=== PATIENT | male | born 1965 | race Caucasian/White ===

== ENCOUNTER 2018-11-28 07:43 | Day surgery (SDC) | payer BC ==
[2018-11-23 15:59] LABS: BLEEDING TIME 4.5 MINUTES (1.5-7.0)
[2018-11-23 16:04] LABS: BASO % 0.1 % (0-6); EOS % 1.5 % (0-6); GRAN % 64.3 % (47-80); HEMATOCRIT 40.9 % (42.0-52.0); HEMOGLOBIN 13.9 gm/dl (14.0-18.0); LYMPH % 23.8 % (16-45); MEAN CELL VOLUME 85.9 fl (81-97); MEAN CORPUSCULAR HEMOGLOBIN 29.2 pg (27-33); MEAN PLATELET VOLUME 10.7 fl (7.4-10.4); MONO % 10.3 % (0-9); PLATELET COUNT 281 K/uL (130-400); RED BLOOD COUNT 4.76 M/uL (4.40-5.70); RED CELL DISTRIBUTION WIDTH 13.3 % (11.5-14.5); WHITE BLOOD COUNT W/O DIFF 7.1 K/uL (4.2-12.2)
[2018-11-23 16:20] LABS: INR 1.1; PARTIAL THROMBOPLASTIN TIME 29.9 SECONDS (24.5-39.1); PROTHROMBIN TIME (PATIENT) 10.6 SECONDS (9.5-12.1)
[2018-11-23 16:22] LABS: BLOOD UREA NITROGEN 22 mg/dL (6-20); EST GLOMERULAR FILTRATION RATE > 60 mL/min; GLUCOSE,RANDOM 158 mg/dL (74-109)
--- NOTE | 2018-11-28 06:38 | History and Physical - Ferro ---
CHIEF COMPLAINT/HISTORY OF CHIEF COMPLAINT: This patient presents with a history of intractable post lumbar laminectomy radiculopathy. Due to the failure of therapy, a spinal cord stimulator trial was conducted on 05/28/18. Due to the success of the trial and the failure of all other therapies, he presents today for implantation of a permanent system. PAST MEDICAL HISTORY: Hypertension and degenerative arthritis. PAST SURGICAL HISTORY: Knee surgery, lumbar spinal surgery, and biceps surgery. EMPLOYMENT STATUS: rn postpartum employed. MEDICATIONS ON ADMISSION: List to be provided. ALLERGIES: MELOXICAM. FAMILY/PSYCHOSOCIAL HISTORY: Social history - Caffeine. Family history - Diabetes, hypertension, and coronary artery disease. SYSTEMS REVIEW: The patient is appropriate in no acute distress. The remainder of the systems review is positive for blood pressure problems. PHYSICAL EXAMINATION: Height is 6', weight is 240. No vital signs. HEENT: Within normal limits. LUNGS: Clear. HEART: Rapid and regular rate. ABDOMEN: Nontender. MUSCULOSKELETAL: Examination of the musculoskeletal system shows diffuse tenderness across the lumbar spine. Range of motion does cause pain into both legs somewhat more left than right across an outer front surface. There is mild motor and sensory abnormalities somewhat more left than right. Ambulation - No assistive device utilized. NEUROLOGIC: Cranial nerves are intact. IMPRESSION: LUMBAR RADICULOPATHY, ICD-10 CODE M54.16 AND M54.17. PLAN: This patient had a successful stimulator trial and failed all other therapies. He is here for a permanent implantation. The procedure will be considered outpatient, but an overnight stay will be evaluated. The potential risks, side effects, and complications have all been carefully reviewed and discussed. JOB NUMBER: [id number] MTDD
[~2018-11-28 07:43] MED LIST: ACETAMINOPHEN 1,000 MG/100 ML BTL IV ONE; CEFAZOLIN 2 Gram 2 GM/50 ML BAG IVPB ONE; FAMOTIDINE 20MG TABLET PO ONE; MECLIZINE 25 MG TABLET PO ONE; METOCLOPRAMIDE 10 MG TABLET PO ONE
[2018-11-28] MEDS ORDERED: FENTANYL PF 100MCG/2ML VIAL IV ONE (07:44)
[2018-11-28] MEDS ORDERED: OXYCODONE/APAP 10MG-325MG TABLET PO ONE (07:44)
[2018-11-28] MEDS ORDERED: KETAMINE HCL 100MG/1ML VIAL INJ ONE (07:44)
[2018-11-28] MEDS ORDERED: 0.9 % SODIUM CHLORIDE 10 ML VIAL IVP ONE (07:44)
[2018-11-28] MEDS ORDERED: MIDAZOLAM HCL 2MG/2ML VIAL IV ONE (07:44)
[2018-11-28] MEDS ORDERED: LIDOCAINE 1% W/EPI 1:200,000 MPF 30ML SQ ONE (07:44)
[2018-11-28] MEDS ORDERED: CEFAZOLIN 1G VIAL IM ONE (07:44)
[2018-11-28] MEDS ORDERED: LIDOCAINE 2% MDV (20MG/ML) 20ML VIAL IV ONE (07:44)
[2018-11-28] MEDS ORDERED: PROPOFOL 10 MG/ML VIAL IV ONE (07:44)
[2018-11-28] MEDS ORDERED: BUPIVACAINE 0.5% W/EPI MPF 30 ML VIAL IVP ONE (07:44)
--- NOTE | 2018-11-29 16:19 | Operative Note ---
DATE OF SURGERY: 11/28/18 PREOPERATIVE DIAGNOSES: POST LUMBAR LAMINECTOMY SYNDROME, ICD-10 CODE = M96.1 WITH RADICULOPATHY, ICD- 10 CODE = M54.16 AND M54.17. OPERATION: 1. FLUOROSCOPICALLY-GUIDED EPIDURAL ACCESS LEFT T12/L1. PLACEMENT OF SPINAL CORD STIMULATOR LEAD 1, A [employer] INFINION 16 WITH 6 ELECTRODES POSITIONED LEFT T7. 2. FLUOROSCOPICALLY-GUIDED EPIDURAL ACCESS LEFT T11/12. PLACEMENT OF SPINAL CORD STIMULATOR LEAD 2, A [employer] INF[employer] 16 WITH 6 ELECTRODES POSITIONED RIGHT, T7. 3. COMPLEX PROGRAMMING LEAD 1 OVER 20 MINUTES FOLLOWED BY COMPLEX PROGRAMMING OF LEAD 2 OVER 20 MINUTES. 4. INCISION, SUBCUTANEOUS DISSECTION, AND ANCHORING LEAD 1 AND LEAD 2 TO SUPRASPINOUS FASCIA WITH A [employer] LOCKING ANCHOR AND NONABSORBABLE SUTURE. 5. INCISION, SUBCUTANEOUS DISSECTION, AND CREATION OF A SUBCUTANEOUS POUCH AT LEFT POSTERIOR GLUTEAL MARGIN SLIGHTLY ABOVE BELT LINE FOR PLACEMENT OF GENERATOR IDENTIFIED A [employer] WAVEWRITER PROGRAMMABLE RECHARGEABLE. 6. TUNNELING BETWEEN POUCHES, PLACEMENT OF EXTERNAL PORTION OF LEAD 1 AND LEAD 2 INTO GENERATOR POUCH, EACH LEAD INTERFACED TO GENERATOR. 7. PLACEMENT OF GENERATOR POUCH, PLACEMENT OF LEADS INTO POUCH. CLOSURE OF BOTH INCISIONS STRATAFIX SUTURE 2-0 FASCIA, 3-0 SKIN. DERMABOND CLOSURE. 8. COMPLEX RECOVERY ROOM PROGRAMMING INTERNAL GENERATOR HOME USE, TWO STIMULATORS, RECOVERY ROOM 20 MINUTES. SURGEON: SYDNEE GAONA D.O. ANESTHESIA: LOCAL SEDATION. ANESTHESIA PROVIDER: SWATI GONZALEZ CRNA. INDICATION: This patient presents with a history of intractable post lumbar laminectomy radiculopathy. Due to the failure of therapies, a spinal cord stimulator trial was conducted with 75 to 95% pain control. Due to the failure of therapy and the success of the stimulator trial, by his request, he is here for permanent implantation. PROCEDURE: Intravenous line, vital sign monitoring, IV sedation, prepped and draped in sterile technique. Under imaging, the epidural interspace left of the midline at T11/12 and 12/ were marked, infiltrated. Two separate curved access Epimed needles with [id number]. The Epimed successful at 12/1 with standard needle successful at 11/12 with [id number]. Atraumatic. No CSF. No blood. At 12/, spinal cord stimulator lead 1, a [employer] Infinion 16 with 6 electrodes was positioned left T7. With the epidural access at 11, spinal cord stimulator lead 2, a [employer] Infinion 16 with 6 electrodes positioned right at T7. Complex programming of lead 1 over 20 minutes followed by complex programming of lead 2 over 20 minutes resulting in complete patterns of stimulation across the back and into the legs; patient indicating we had all of the areas of the pain. He was given the option to implant, continue to program, or remove; he opted to implant. Questions were repeated with the same response. The skin above and below both needles infiltrated, incision made, and subcutaneous dissection was conducted to the supraspinous fascia. Each lead was then anchored to the supraspinous fascia with a [employer] [place]. At the left flank, above the belt line , a site picked by the patient for the generator, skin infiltrated, incision made, and subcutaneous dissection was conducted to form a pouch of suitable size and depth for the generator, a [employer] Program[employer] Rechargeable WaveWriter. A tunneling tool was used to carry the leads into the generator pouch and then each lead was interfaced to the generator. Antibiotic irrigation. Bovie for hemostasis. The leads were placed into their pouch and then the generator was placed in its own pouch and then both incisions were closed using STRATAFIX suture 2-0 fascia and 3-0 skin and then a Dermabond closure was used to approximate the edges of both wounds. He was then transported to the Recovery Room stable. No side-effects from the procedure or the sedation. With the Dermabond firmly in place, he is prepared for discharge. DISCHARGE INSTRUCTIONS: 1. Sites remain clean and dry. No showering or bathing in any way that would disrupt dressings. Although the Dermabond will allow showering, he should not sit in a tub or sit in water. 2. Standard medications resumed including the antibiotic Levaquin. He will take 500 mg once a day for 14 days. 3. The office will contact the patient in 24-48 hours to set up a time in 7-10 days for us to evaluate the incisions. Throughout this period of time, he is to keep his activities low. Limit bend, lift, push, pull. Once we have seen the sites, we can clear him for further activities. All other instructions provided , numbers to contact, problems given. The antibiotic Levaquin has been called to his pharmacy. cc: Dr. Eliot Deng JOB NUMBER: [id number] MTDD
--- NOTE | 2018-11-30 09:06 | RADIOLOGY REPORT ---
DATE: 11/28/2018. EXAM: SPINE RADIOGRAPH. HISTORY: Spinal cord stimulator implant. TECHNIQUE: Single frontal radiograph of the thoracolumbar spine. COMPARISON: None. FINDINGS: There is a stimulator device with a generator pack superimposing the left lower abdomen and leads superimposing the T7 through T9 vertebra. For additional details, please refer to the procedural report. Also noted is lower lumbar spinal fusion hardware. IMPRESSION: ABOVE. JOB NUMBER: [id number] MTDD
== END 2018-11-28 12:15 | disposition home or self-care (01) ==
LOC: SUR 07:43
PROVIDERS: ATTEND Pain Medicine Interventional Pain Medicine
DX: M96.1 Postlaminectomy syndrome, not elsewhere classified (principal); M54.16 Radiculopathy, lumbar region; M54.17 Radiculopathy, lumbosacral region; I10 Essential (primary) hypertension; E11.9 Type 2 diabetes mellitus without complications
CPT/HCPCS: 63650; 63685; 01936; 95972; 85025; 85730; 85610; 80048; 85002; 72020; J3010; J0690; J3490; C1820; C1883

== ENCOUNTER 2018-12-20 14:59 | Day surgery (SDC) | payer BC ==
[2018-12-20] MEDS ORDERED: KETAMINE HCL 100MG/1ML VIAL INJ ONE (15:00)
[2018-12-20] MEDS ORDERED: CEFAZOLIN 1G VIAL IM ONE (15:00)
[2018-12-20] MEDS ORDERED: PROPOFOL 10 MG/ML VIAL IV ONE (15:00)
[2018-12-20] MEDS ORDERED: DEXAMETHASONE 4 MG/ML 1ML VIAL IVP ONE (15:00)
[2018-12-20] MEDS ORDERED: LIDOCAINE 2% MDV (20MG/ML) 20ML VIAL IV ONE (15:00)
[2018-12-20] MEDS ORDERED: OXYCODONE/APAP 10MG-325MG TABLET PO ONE (15:00)
[2018-12-20] MEDS ORDERED: MIDAZOLAM HCL 2MG/2ML VIAL IV ONE (15:00)
[2018-12-20] MEDS ORDERED: LIDOCAINE 1% W/EPI 1:200,000 MPF 30ML SQ ONE (15:00)
[2018-12-20] MEDS ORDERED: HYDROMORPHONE HCL 2 MG/ML VIAL IV ONE (15:00)
[2018-12-20] MEDS ORDERED: BUPIVACAINE 0.5% W/EPI MPF 30 ML VIAL IVP ONE (15:00)
[2018-12-20] MEDS ORDERED: FENTANYL PF 100MCG/2ML VIAL IV ONE (15:00)
--- NOTE | 2018-12-22 13:04 | Operative Note ---
DATE OF SURGERY: 12/20/2018. PREOPERATIVE DIAGNOSIS: 1. POSTLUMBAR LAMINECTOMY SYNDROME, ICD-10 CODE M96.1. 2. RADICULOPATHY, ICD-10 CODE M54.16 AND M54.17. 3. SPINAL CORD STIMULATOR INTERNAL GENERATOR WITH FLIPPED MALPOSITION OF SINGLE LEAD AND NERVE ROOT IRRITATION. POSTOPERATIVE DIAGNOSIS: 1. POSTLUMBAR LAMINECTOMY SYNDROME, ICD-10 CODE M96.1. 2. RADICULOPATHY, ICD-10 CODE M54.16 AND M54.17. 3. SPINAL CORD STIMULATOR INTERNAL GENERATOR WITH FLIPPED MALPOSITION OF SINGLE LEAD AND NERVE ROOT IRRITATION. OPERATION: Fluoroscopically guided incision, subcutaneous dissection, and removal of right spinal cord stimulator lead, one of two implants. SURGEON: Lexx Obrien D.O. ANESTHESIA: Local sedation. ANESTHESIA PROVIDER: Alexis Mcdonald CRNA. INDICATION: This patient presents with a history of spinal cord stimulator internal generator implant approximately three to four weeks ago. Although initially it was in excellent position and good stimulation patterns were achieved, over perhaps three to five days the patient began having chest wall or intercostal pain on the right. X-rays were performed which suggested that one of the two leads had migrated laterally. Lateral imaging showed the lateral lead was pushing close to the dorsal root entry zone. This suggested the probability that the pain pattern toward the intercostal chest wall on the right was a lead which had migrated up against a nerve root. Corticosteroid therapy was utilized and was unsuccessful. He is here for removal of the lead. He was given the option to remove both leads, but he felt that the single lead still provided adequate stimulation. We will therefore remove today only the single lead. We will then evaluate over the next period of time whether or not a second lead would be necessary. DESCRIPTION OF PROCEDURE: Intravenous line, vital sign monitoring, and intravenous sedation. Prepped and draped with sterile technique. The patient was positioned prone. The original incision for the lead placement was infiltrated with local. An incision was made and subcutaneous dissection was conducted to the anchors. Under imaging and with corroboration with the previous standard x-rays performed shortly after the implant, the migrated lead was identified at the upper anchor. The suture holding the anchor was cut and removed, and the lead and anchor were removed intact by slowly retracting out of the space. There were no abnormal events during the procedure. At that time, Anesthesia gave intravenous dexamethasone as a corticosteroid to help reduce some of the irritation. Antibiotic irrigation was performed, and then the incision was closed with one of the original two leads still in place. The incision was then closed using Stratafix suture; #2-0 for the fascia and #3- 0 for the skin. Dermabond closure was then used to approximate the edges of the wound. He was transported to the recovery room stable with no side effects from the procedure or the sedation. He will be monitored and then discharged to home. DISCHARGE INSTRUCTIONS: 1. The site is to remain clean and dry; although the Dermabond will allow showering. 2. He will return to the office in the next three to five days for evaluation of his incision. He is scheduled to return to work in the next four to five days. 3. Standard medications to be resumed. He will continue his antibiotic with Levaquin 500 mg once a day for 14 days. 4. His activities should stay controlled. Although the remaining lead has had sufficient time to scar and fibrose, he should still maintain a minimum amount of bend, lift, push, and pull until he is seen in the office in 10 to 14 days. 5. All other instructions were provided and numbers to contact with problems were given. He was then discharged. JOB NUMBER: [id number] cc: Dr. Eliot TAVERAS
--- NOTE | 2018-12-22 13:25 | History and Physical - Ferro ---
DATE: 12/20/2018. CHIEF COMPLAINT/HISTORY OF CHIEF COMPLAINT: This is a patient with a history of a spinal cord stimulator implant placed within the last two to four weeks. He contacted the office and indicated he was having fairly intense pain in the right side of his chest wall. We reviewed the records, and he had been seen roughly 10 to 14 days postoperatively after the implant and was starting to have some irritation in the chest wall intercostal region. It was felt that he just had postoperative change, and he was given a Medrol Dosepak. This did not seem to help, and in fact his pain progressed. Standard diagnostic x-rays were performed which suggested one of the two leads, that on the right, had migrated lateral. The lateral image of the x-ray suggested that the lead was possibly close to the dorsal root or pushing toward the nerve root. It was then assumed that he had a lead irritating a nerve root. He was scheduled today, the same day he was seen in the office, for removal of the lead. Because the system had been helping his pain, he was given the option to remove only the one lead or to remove both leads and then return another time for reimplant. He opted to remove only the involved lead, leaving one lead which was still sufficient to control his pain. PAST MEDICAL HISTORY: Unchanged. PAST SURGICAL HISTORY: Unchanged. MEDICATIONS ON ADMISSION: Unchanged. ALLERGIES: Unchanged. FAMILY HISTORY: Unchanged. SOCIAL HISTORY: Unchanged. SYSTEMS REVIEW: Unchanged PHYSICAL EXAMINATION: GENERAL: Height and weight not identified. HEENT: Within normal limits. LUNGS: Clear. HEART: Rapid and regular. ABDOMEN: Nontender. MUSCULOSKELETAL: Examination of the musculoskeletal system shows an area of pain along the mid to lower right intercostals anterior to the anterior axillary line. X-rays were used to corroborate findings of a possible nerve root. NEUROLOGIC: The sensory field evaluation showed pain. There were no ___ responses. The upper and lower extremities were not compromised. Cranial nerves intact. IMPRESSION: 1. POSTLUMBAR LAMINECTOMY SYNDROME, ICD-10 CODE M96.1. 2. SPINAL CORD STIMULATOR INTERNAL GENERATOR TWO TO FOUR WEEKS POST IMPLANT. 3. MIGRATION OF LEAD WITH NERVE ROOT IRRITATION. PLAN: We will remove the involved lead, leaving one of the two leads fully implanted. The procedure will be considered outpatient. JOB NUMBER: [id number] cc: [facility]. [facility]eng [facility]
== END 2018-12-20 18:20 | disposition home or self-care (01) ==
LOC: SUR 14:59
PROVIDERS: ATTEND Pain Medicine Interventional Pain Medicine
DX: M96.1 Postlaminectomy syndrome, not elsewhere classified (principal); M54.16 Radiculopathy, lumbar region; M54.17 Radiculopathy, lumbosacral region; I10 Essential (primary) hypertension; E78.00 Pure hypercholesterolemia, unspecified
CPT/HCPCS: 63662; 00630; 95972; J3010; J1170; J3490; J0690